=== PATIENT | male | born 1960 | race Native Hawaiian/Other Pacific Islander ===

== ENCOUNTER 2022-08-23 11:52 | Outpatient (CLI) | payer OTHER | END 2022-08-23 19:13 | disposition home or self-care (01) | LOC: CT 11:52 | PROVIDERS: ATTEND Internal Medicine | DX: R51.9 Headache, unspecified (principal); H53.8 Other visual disturbances; R55 Syncope and collapse | CPT/HCPCS: 36415; 82565; 84520; Q9963 ==